=== PATIENT | male | born 1985 | race African-American/Black ===

== ENCOUNTER 2019-02-06 10:52 | Emergency (ER) | payer MEDICAID ==
[~2019-02-06] VITALS: Ht 180.3 cm; Wt 109.1 kg
[~2019-02-06 10:52] MED LIST: HALDOL 5MG T5 MG/TAB PO; NO HOME MEDICATIONS; NORCO 325 MG-51 TAB PO; NORCO 325 MG-7.1 TAB PO; PREDNISONE1 MG PO; REMERON 15M15 MG/TA1 PO; ULTRAM 50MG TAB50 MG; ULTRAM50 MG PO
[2019-02-06 10:56] VITALS: BP 142/89; PULSE 111
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
--- NOTE | 2019-02-06 16:40 | NUR ---
TRUDY was called by ER nurse to provide resources to patient's mother on DPOA. SW provided DPOA form but informed her that patient is not mentally stable to sign a DPOA at this time. TRUDY suggested mother contact [employer] about options. TRUDY provided phone number. TRUDY also provided a taxi voucher for patient and mother.
== END 2019-02-06 12:45 | disposition left against medical advice (07) ==
LOC: COL.ER 10:52
DX: R07.9 Chest pain, unspecified (principal); F20.9 Schizophrenia, unspecified

== ENCOUNTER 2019-06-08 07:40 | Emergency (ER) | payer MEDICAID ==
[~2019-06-08] VITALS: Ht 180.3 cm; Wt 100.0 kg
[2019-06-08 07:48] VITALS: BP 129/79; TEMP 98.7
[2019-06-08] MEDS ORDERED: ZYPREXA10 MG PO (08:25)
[2019-06-08] MEDS ORDERED: LIORESAL 1010 MG/TAB PO (08:26)
[2019-06-08] MEDS ORDERED: NIZORAL SHAMPO120 M1 TP (08:34)
[2019-06-08 08:45] VITALS: PULSE 75
== END 2019-06-08 08:45 | disposition home or self-care (01) ==
LOC: COL.ER 07:40
DX: L21.9 Seborrheic dermatitis, unspecified (principal)

== ENCOUNTER 2019-10-22 12:40 | Emergency (ER) | payer MEDICARE, MEDICAID ==
[~2019-10-22 12:40] MED LIST changes: +LIORESAL 1010 MG/TAB PO; +NIZORAL SHAMPO120 M1 TP; +ZYPREXA10 MG PO
[2019-10-22 12:49] VITALS: BP 143/80; TEMP 98.4
[2019-10-22 14:30] VITALS: PULSE 108
== END 2019-10-22 14:30 | disposition home or self-care (01) ==
LOC: COL.ER 12:40
DX: R07.89 Other chest pain (principal); R51 Headache; F20.9 Schizophrenia, unspecified

== ENCOUNTER 2020-05-20 18:43 | Emergency (ER) | payer MEDICARE, MEDICAID ==
[~2020-05-20] VITALS: Ht 180.3 cm; Wt 125.0 kg
[2020-05-20 18:45] VITALS: TEMP 98.3
[2020-05-20 19:32] LABS: BASO % 0.4 % (0.0-2.0); EOS # 0.2 (0.0-0.7); EOS % 1.4 % (0-4.0); GRAN # 6.9 (1.4-6.5); GRAN % 62.3 % (42.2-75.2); HEMATOCRIT 48.9 % (42.0-52.0); HEMOGLOBIN 15.9 g/dl (13.5-18.0); LYMPH # 3.3 (1.2-3.4); LYMPH % 29.4 % (20.0-51.0); MEAN CELL VOLUME 91 fl (80.0-100.0); MEAN CORPUSCULAR HEMOGLOBIN 30 pg (27.0-31.0); MEAN CORPUSCULAR HGB CONC 33 g/dl (33.0-37.0); MEAN PLATELET VOLUME 10.5 fl (7.4-10.4); MONO # 0.6 (0.1-0.6); MONO % 5.8 % (1.7-9.3); PLATELET COUNT 299 K/mm3 (130-400); RED BLOOD COUNT 5.38 M/mm3 (4.20-5.60)
[2020-05-20 19:37] LABS: ALANINE AMINOTRANSFERASE 151 U/L (4-49); ALBUMIN 4.8 gm/dL (3.5-5.0); ALKALINE PHOSPHATASE 69 U/L (50-136); ANION GAP 11 mmol/L (7-16); AST,SGOT 119 U/L (15-37); BILIRUBIN,TOTAL 0.8 mg/dL (0.0-1.0); BLOOD UREA NITROGEN 15 mg/dL (9-20); CALCIUM 10.2 mg/dL (8.4-10.2); CARBON DIOXIDE 28 mmol/L (22-30); CHLORIDE 100 mmol/L (98-107); CREATININE, serum 1.22 (0.66-1.25); GLUCOSE 108 mg/dL (74-106); LIPASE 90 U/L (23-300); POTASSIUM 4.1 mmol/L (3.4-5.0); SODIUM 139 mmol/L (137-145)
[2020-05-20 19:50] LABS: TROPONIN-I < 0.012 ng/mL (0.000-0.035)
[2020-05-20 21:25] VITALS: BP 140/86; PULSE 96
== END 2020-05-20 21:23 | disposition home or self-care (01) ==
LOC: COL.ER 18:43
PROVIDERS: Emergency Medicine
DX: R07.89 Other chest pain (principal); R06.00 Dyspnea, unspecified
CPT/HCPCS: J1885; J7030

== ENCOUNTER 2020-08-13 19:06 | Emergency (ER) | payer MEDICARE, MEDICAID ==
[~2020-08-13] VITALS: Ht 180.3 cm; Wt 113.6 kg
[2020-08-13 19:16] VITALS: TEMP 97.1
[2020-08-13 20:10] LABS: BASO % 0.1 % (0.0-2.0); EOS % 0.1 % (0-4.0); GRAN % 85.9 % (42.2-75.2); HEMATOCRIT 52.3 % (42.0-52.0); HEMOGLOBIN 16.6 g/dl (13.5-18.0); LYMPH # 0.9 (1.2-3.4); LYMPH % 5.8 % (20.0-51.0); MEAN CELL VOLUME 94 fl (80.0-100.0); MEAN CORPUSCULAR HEMOGLOBIN 30 pg (27.0-31.0); MEAN CORPUSCULAR HGB CONC 32 g/dl (33.0-37.0); MEAN PLATELET VOLUME 12.8 fl (7.4-10.4); MONO # 1.2 (0.1-0.6); MONO % 7.4 % (1.7-9.3); PLATELET COUNT 293 K/mm3 (130-400); RED BLOOD COUNT 5.59 M/mm3 (4.20-5.60); REDCELL DISTRIBUTION WIDTH-CV 14.1 % (11.5-14.5)
[2020-08-13 20:12] LABS: PROTHROMBIN TIME 11.1 SECONDS (9.7-12.8)
[2020-08-13 20:15] LABS: PARTIAL THROMBOPLASTIN TIME 24.1 SECONDS (26.0-37.0)
[2020-08-13 20:23] LABS: ALANINE AMINOTRANSFERASE 241 U/L (4-49); ALBUMIN 4.5 gm/dL (3.5-5.0); ALKALINE PHOSPHATASE 202 U/L (50-136); AST,SGOT 305 U/L (15-37); BILIRUBIN,TOTAL 1.1 mg/dL (0.0-1.0); BLOOD UREA NITROGEN 43 mg/dL (9-20); CALCIUM 9.6 mg/dL (8.4-10.2); CHLORIDE 100 mmol/L (98-107); CREATININE, serum 2.68 (0.66-1.25); POTASSIUM 4.5 mmol/L (3.4-5.0); SODIUM 134 mmol/L (137-145); TOTAL PROTEIN 7.9 gm/dL (6.4-8.2)
[2020-08-13 20:33] LABS: CARBON DIOXIDE < 5 mmol/L (22-30); GLUCOSE 1119 mg/dL (74-106)
[2020-08-13 20:56] LABS: ALCOHOL(ethanol),MEDICAL < 10 mg/dL; TROPONIN-I < 0.012 ng/mL (0.000-0.035)
[2020-08-13 21:31] LABS: ARTERIAL BLOOD GAS PCO2 10.1 mmHg (35-45); ARTERIAL BLOOD GAS pH 7.09 (7.35-7.45)
[2020-08-13 21:32] LABS: ARTERIAL BLD GAS O2 SATURATION 98.5 % (92-100); ARTERIAL BLOOD GAS BASE EXCESS -24.2 (-2-2); ARTERIAL BLOOD GAS PO2 138.7 mmHg (80-100)
[2020-08-14 01:00] VITALS: BP 113/94; PULSE 116
[2020-08-14 01:03] LABS: TSH w REFLEX 1.46 uIU/mL (0.465-4.680)
== END 2020-08-14 01:18 | disposition short-term general hospital (02) ==
LOC: COL.ER 19:06
PROVIDERS: Emergency Medicine
DX: E11.10 Type 2 diabetes mellitus with ketoacidosis without coma (principal); I10 Essential (primary) hypertension; N17.9 Acute kidney failure, unspecified; F20.9 Schizophrenia, unspecified
CPT/HCPCS: J1815; J2060; J2405; J2550; J7030

== ENCOUNTER 2020-11-20 17:57 | Emergency (ER) | payer MEDICARE, MEDICAID ==
[~2020-11-20] VITALS: Ht 180.3 cm; Wt 102.3 kg
[2020-11-20 19:35] LABS: COLLECTION METHOD CLEAN CATCH
[2020-11-20 19:41] LABS: BASO % 0.3 % (0.0-2.0); EOS % 0.5 % (0-4.0); GRAN # 6.9 (1.4-6.5); GRAN % 79.3 % (42.2-75.2); HEMATOCRIT 50.4 % (42.0-52.0); HEMOGLOBIN 15.9 g/dl (13.5-18.0); LYMPH # 1.4 (1.2-3.4); LYMPH % 15.4 % (20.0-51.0); MEAN CELL VOLUME 96 fl (80.0-100.0); MEAN CORPUSCULAR HEMOGLOBIN 30 pg (27.0-31.0); MEAN CORPUSCULAR HGB CONC 32 g/dl (33.0-37.0); MEAN PLATELET VOLUME 10.9 fl (7.4-10.4); MONO # 0.4 (0.1-0.6); MONO % 4.3 % (1.7-9.3); PLATELET COUNT 281 K/mm3 (130-400); RED BLOOD COUNT 5.23 M/mm3 (4.20-5.60); REDCELL DISTRIBUTION WIDTH-CV 12.2 % (11.5-14.5)
[2020-11-20 19:44] LABS: MUCOUS Present /lpf; PH 5 (5-8); SQUAMOUS EPITHELIAL None Seen /hpf; URINE APPEARANCE Hazy; URINE BACTERIA None Seen /hpf; URINE BILIRUBIN Negative (NEGATIVE); URINE BLOOD Negative (NEGATIVE); URINE COLOR Yellow; URINE GLUCOSE Negative (NEGATIVE); URINE KETONE Trace (NEGATIVE); URINE LEUKOCYTE ESTERASE Negative (NEGATIVE); URINE NITRATE Negative (NEGATIVE); URINE PROTEIN(semi-quant) 1+ (NEGATIVE); URINE RBC 0-2 /hpf
[2020-11-20 19:51] LABS: ALBUMIN 4.6 gm/dL (3.5-5.0); BILIRUBIN,TOTAL 0.5 mg/dL (0.0-1.0); CALCIUM 9.8 mg/dL (8.4-10.2); CREATININE, serum 1.36 (0.66-1.25); POTASSIUM 4.2 mmol/L (3.4-5.0)
[2020-11-20 20:44] VITALS: BP 143/78; PULSE 96
[2020-11-20] MEDS ORDERED: INSULIN AS100 UNIT/3 SQ (20:46)
[2020-11-20] MEDS ORDERED: LEVEMIR FLEX100 U/ML SQ (20:46)
[2020-11-24] MEDS ORDERED: SEROQUEL XR150 MG PO (14:46)
== END 2020-11-20 20:47 | disposition home or self-care (01) ==
LOC: COL.ER 17:57
PROVIDERS: Nurse Practitioner
DX: E11.649 Type 2 diabetes mellitus with hypoglycemia without coma (principal); F20.9 Schizophrenia, unspecified; F31.9 Bipolar disorder, unspecified; Z79.4 Long term (current) use of insulin

== ENCOUNTER 2021-08-28 19:40 | Emergency (ER) | payer MEDICARE, MEDICAID ==
[~2021-08-28 19:40] MED LIST changes: +INSULIN AS100 UNIT/3 SQ; +LEVEMIR FLEX100 U/ML SQ; +SEROQUEL XR150 MG PO
[2021-08-28 20:46] VITALS: TEMP 98.7
[2021-08-29 00:39] LABS: ALANINE AMINOTRANSFERASE 39 U/L (0-55); ALKALINE PHOSPHATASE 44 U/L (40-150); ANION GAP 10 mmol/L (7-16); AST,SGOT 27 U/L (5-34); BILIRUBIN,TOTAL 0.5 mg/dL (0.2-1.2); BLOOD UREA NITROGEN 13 mg/dL (9-21); CALCIUM 9.6 mg/dL (8.4-10.2); CARBON DIOXIDE 21 mmol/L (22-29); CHLORIDE 107 mmol/L (98-107); CREATININE, serum 1.14 mg/dL (0.72-1.25); GLUCOSE 103 mg/dL (70-99); POTASSIUM 3.6 mmol/L (3.5-4.5); SODIUM 138 mmol/L (136-145); TOTAL PROTEIN 7.8 gm/dL (6.2-8.1)
[2021-08-29 00:44] LABS: BASO % 0.3 % (0.0-2.0); EOS % 0.2 % (0-4.0); GRAN # 7.1 K/mm3 (1.4-6.5); GRAN % 69.3 % (42.2-75.2); HEMATOCRIT 44.5 % (42.0-52.0); HEMOGLOBIN 14.3 g/dl (13.5-18.0); LYMPH # 2.4 K/mm3 (1.2-3.4); LYMPH % 23.5 % (20.0-51.0); MEAN CELL VOLUME 92 fl (80.0-100.0); MEAN CORPUSCULAR HEMOGLOBIN 30 pg (27.0-31.0); MEAN CORPUSCULAR HGB CONC 32 g/dl (33.0-37.0); MEAN PLATELET VOLUME 10.4 fl (7.4-10.4); MONO # 0.6 K/mm3 (0.1-0.6); MONO % 6.3 % (1.7-9.3); PLATELET COUNT 294 K/mm3 (130-400); RED BLOOD COUNT 4.83 M/mm3 (4.20-5.60); REDCELL DISTRIBUTION WIDTH-CV 12.8 % (11.5-14.5)
[2021-08-29 00:49] LABS: TROPONIN-I < 0.010 ng/mL (0.00-0.033)
[2021-08-29 02:04] VITALS: BP 169/93; PULSE 75
== END 2021-08-29 02:06 | disposition home or self-care (01) ==
LOC: COL.ER 19:40
PROVIDERS: Nurse Practitioner
DX: R07.89 Other chest pain (principal); F84.0 Autistic disorder; E11.9 Type 2 diabetes mellitus without complications; F31.9 Bipolar disorder, unspecified; F20.9 Schizophrenia, unspecified; Z79.899 Other long term (current) drug therapy

== ENCOUNTER 2021-09-05 13:25 | Emergency (ER) | payer MEDICARE, MEDICAID ==
[~2021-09-05] VITALS: Ht 180.3 cm; Wt 95.5 kg
[2021-09-05 13:30] VITALS: BP 151/90; PULSE 101; TEMP 97.6
[2021-09-05 14:16] LABS: BASO % 0.3 % (0.0-2.0); EOS # 0.1 K/mm3 (0.0-0.7); EOS % 0.6 % (0-4.0); GRAN # 6.8 K/mm3 (1.4-6.5); GRAN % 70.1 % (42.2-75.2); HEMOGLOBIN 14.8 g/dl (13.5-18.0); LYMPH # 2.2 K/mm3 (1.2-3.4); LYMPH % 22.9 % (20.0-51.0); MEAN CELL VOLUME 94 fl (80.0-100.0); MEAN CORPUSCULAR HEMOGLOBIN 30 pg (27.0-31.0); MEAN CORPUSCULAR HGB CONC 32 g/dl (33.0-37.0); MEAN PLATELET VOLUME 9.8 fl (7.4-10.4); MONO # 0.6 K/mm3 (0.1-0.6); MONO % 5.8 % (1.7-9.3); PLATELET COUNT 285 K/mm3 (130-400); RED BLOOD COUNT 4.98 M/mm3 (4.20-5.60); REDCELL DISTRIBUTION WIDTH-CV 12.7 % (11.5-14.5)
[2021-09-05 14:38] LABS: ALANINE AMINOTRANSFERASE 40 U/L (0-55); ALBUMIN 3.9 gm/dL (3.5-5.0); ALKALINE PHOSPHATASE 47 U/L (40-150); ANION GAP 11 mmol/L (7-16); AST,SGOT 24 U/L (5-34); BILIRUBIN,TOTAL 0.3 mg/dL (0.2-1.2); BLOOD UREA NITROGEN 17 mg/dL (9-21); CALCIUM 9.7 mg/dL (8.4-10.2); CARBON DIOXIDE 23 mmol/L (22-29); CHLORIDE 108 mmol/L (98-107); CREATININE, serum 1.41 mg/dL (0.72-1.25); GLUCOSE 99 mg/dL (70-99); SODIUM 142 mmol/L (136-145); TOTAL PROTEIN 7.8 gm/dL (6.2-8.1)
[2021-09-05 14:44] LABS: ACETAMINOPHEN < 1.0 ug/mL (10-30); ALCOHOL(ethanol),MEDICAL < 10 mg/dL (0-10); SALICYLATE < 5.0 mg/dL (15.0-30.0)
[2021-09-05 14:45] LABS: TROPONIN-I < 0.010 ng/mL (0.00-0.033)
[2021-09-07 06:36] LABS: COLLECTION METHOD CLEAN CATCH
[2021-09-07 06:36] LABS: TRICYCLIC ANTIDEPRESS URINE NEGATIVE
[2021-09-07 06:46] LABS: MUCOUS Present /lpf; PH 5 (5-8); SQUAMOUS EPITHELIAL None Seen /hpf; URINE APPEARANCE Hazy; URINE BACTERIA None Seen /hpf; URINE BILIRUBIN Negative (NEGATIVE); URINE BLOOD Negative (NEGATIVE); URINE COLOR Yellow; URINE GLUCOSE Negative (NEGATIVE); URINE KETONE Negative (NEGATIVE); URINE LEUKOCYTE ESTERASE Negative (NEGATIVE); URINE NITRATE Negative (NEGATIVE); URINE PROTEIN(semi-quant) Negative (NEGATIVE); URINE RBC 0-2 /hpf; URINE UROBILINOGEN Negative (NEGATIVE)
== END 2021-09-05 18:20 | disposition home or self-care (01) ==
LOC: COL.ER 13:25
PROVIDERS: Family Medicine
DX: F20.9 Schizophrenia, unspecified (principal); E11.9 Type 2 diabetes mellitus without complications; J45.909 Unspecified asthma, uncomplicated; F31.9 Bipolar disorder, unspecified; Z79.899 Other long term (current) drug therapy

== ENCOUNTER 2021-09-05 21:49 | Emergency (ER) | payer MEDICARE, MEDICAID ==
[~2021-09-05] VITALS: Ht 180.3 cm; Wt 95.5 kg
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
[2021-09-07 13:44] VITALS: BP 138/97; PULSE 85; TEMP 97.8
== END 2021-09-07 20:45 | disposition home or self-care (01) ==
LOC: COL.ER 21:49
DX: F20.9 Schizophrenia, unspecified (principal); E11.9 Type 2 diabetes mellitus without complications; F84.0 Autistic disorder; Z79.899 Other long term (current) drug therapy

== ENCOUNTER 2021-09-08 11:04 | Emergency (ER) | payer MEDICARE, MEDICAID ==
[~2021-09-08] VITALS: Ht 180.3 cm; Wt 104.5 kg
[2021-09-08 11:31] VITALS: TEMP 98.1
[2021-09-08 11:35] VITALS: BP 140/101; PULSE 95
== END 2021-09-08 13:20 | disposition home or self-care (01) ==
LOC: COL.ER 11:04
DX: F20.9 Schizophrenia, unspecified (principal); F84.0 Autistic disorder; E11.9 Type 2 diabetes mellitus without complications; I10 Essential (primary) hypertension; F31.9 Bipolar disorder, unspecified; J45.909 Unspecified asthma, uncomplicated; Z79.899 Other long term (current) drug therapy

== ENCOUNTER 2022-08-30 10:41 | Emergency (ER) | payer MEDICARE, MEDICAID ==
[~2022-08-30] VITALS: Ht 180.3 cm; Wt 122.7 kg
[2022-08-30 11:11] VITALS: TEMP 98.1
[2022-08-30 15:07] LABS: BASO % 0.3 % (0.0-2.0); EOS # 0.1 K/mm3 (0.0-0.7); EOS % 1.9 % (0.0-4.0); GRAN # 4.2 K/mm3 (1.4-6.5); GRAN % 62.3 % (42.2-75.2); HEMOGLOBIN 13.6 g/dl (13.5-18.0); LYMPH % 29.5 % (20.0-51.0); MEAN CELL VOLUME 90 fl (80.0-100.0); MEAN CORPUSCULAR HEMOGLOBIN 30 pg (27-31); MEAN CORPUSCULAR HGB CONC 33 g/dl (33.0-37.0); MEAN PLATELET VOLUME 10.1 fl (7.4-10.4); MONO # 0.4 K/mm3 (0.1-0.6); MONO % 5.6 % (1.7-9.3); PLATELET COUNT 317 K/mm3 (130-400); RED BLOOD COUNT 4.56 M/mm3 (4.20-5.60); REDCELL DISTRIBUTION WIDTH-CV 12.9 % (11.5-14.5)
[2022-08-30 15:25] LABS: ALANINE AMINOTRANSFERASE 51 U/L (0-55); ALBUMIN 3.7 gm/dL (3.5-5.0); ALKALINE PHOSPHATASE 47 U/L (40-150); ANION GAP 8 mmol/L (7-16); AST,SGOT 32 U/L (5-34); BILIRUBIN,TOTAL 0.3 mg/dL (0.2-1.2); BLOOD UREA NITROGEN 13 mg/dL (9-21); CALCIUM 9.1 mg/dL (8.4-10.2); CARBON DIOXIDE 27 mmol/L (22-29); CHLORIDE 107 mmol/L (98-107); CREATININE, serum 1.09 mg/dL (0.72-1.25); GLUCOSE 70 mg/dL (70-99); POTASSIUM 3.7 mmol/L (3.5-4.5); SODIUM 142 mmol/L (136-145); TOTAL PROTEIN 7.6 gm/dL (6.2-8.1)
[2022-08-30 15:32] LABS: TROPONIN-I < 0.010 ng/mL (0.00-0.033)
[2022-08-30] MEDS ORDERED: FLEXERIL 1010 MG/TAB PO (15:43)
[2022-08-30 15:47] VITALS: BP 124/85; PULSE 74
== END 2022-08-30 15:47 | disposition home or self-care (01) ==
LOC: COL.ER 10:41
PROVIDERS: Nurse Practitioner
DX: M54.12 Radiculopathy, cervical region (principal); Z28.310 Unvaccinated for COVID-19
CPT/HCPCS: J2360